=== PATIENT | female | born 1950 | race Caucasian/White ===

== ENCOUNTER 2018-12-11 11:38 | Day surgery (SDC) | payer MEDICARE, MEDICAID ==
[~2018-12-11] VITALS: Ht 160 cm; Wt 60.8 kg
[~2018-12-11 11:38] MED LIST: ALBUTEROL0.09 MG/A1 IH; ATORVASTATIN; AZITHROMYCIN; B-121000 MCG PO; CALTRATE-600 W600 MG PO; CLARITIN 1010 MG/TAB PO; LEVAQUIN 5500 MG/TAB PO; LIPITOR 10MG10 MG PO; NEXIUM 40MG40 MG PO; PHENERGAN W/CO120 ML PO; PREMARIN0.625 MG PO; PREVACID30 MG PO; PRILOSEC 20MG20 MG PO; PROAIR HFA0.09 MG/AC IH; RT ADVAIR 228 DISKUS IH; RT SPIRIVA18 MCG IH; SINGULAIR 110 MG/TAB PO; THEO-DUR 1100 MG/TAB PO; TRAVATAN Z 2.52.5 ML OU; ULTRAM 50MG TAB50 MG PO
[2018-12-11 12:01] VITALS: BP 143/89; PULSE 91; TEMP 97.7
[2018-12-11] MEDS ORDERED: RT ADVAIR 528 DISKUS IH (12:07)
[2018-12-11] MEDS ORDERED: UNIPHYL 400MG400 MG PO (12:08)
[2018-12-11] MEDS ORDERED: PROVENTIL0.09 MG/A1 IH (12:11)
[2018-12-11] MEDS ORDERED: VITAMIN D31000 I1 PO (12:12)
[2018-12-11 13:25] VITALS: BP 147/83; PULSE 83; TEMP 97.6
--- NOTE | 2018-12-11 13:25 | NUR ---
Pt arrived to room from endo procedure. Pt alert and oriented. Pt walked to chair with x2 nurse assist. Pt's family in room. Denies any pain or nausea. Request water and pudding at this time. Vital signs stable. Call light in reach. Report received from NOÉ Vergara.
[2018-12-11 13:40] VITALS: BP 113/90; PULSE 82; TEMP 97.6
--- NOTE | 2018-12-11 13:40 | NUR ---
Pt tolerating drink and pudding. Denies any nausea. Pt's family in room. Call light in reach.
[2018-12-11 13:55] VITALS: BP 148/76; PULSE 79; TEMP 97.6
--- NOTE | 2018-12-11 14:04 | NUR ---
Discharge paperwork explained to pt and pt's family. All questions answered to pt's satisfaction. Pt given discharge instructions, med list, and procedure information.
--- NOTE | 2018-12-11 14:15 | NUR ---
Pt discharged from unit. Pt left via wheelchair to private vehicle driven by daughter, Kathy.
== END 2018-12-11 14:20 | disposition home or self-care (01) ==
LOC: SDCO 11:38
DX: K29.30 Chronic superficial gastritis without bleeding (principal); K22.2 Esophageal obstruction; K44.9 Diaphragmatic hernia without obstruction or gangrene; K58.9 Irritable bowel syndrome, unspecified; K21.9 Gastro-esophageal reflux disease without esophagitis; J44.9 Chronic obstructive pulmonary disease, unspecified; E78.5 Hyperlipidemia, unspecified; Z99.81 Dependence on supplemental oxygen; Z85.41 Personal history of malignant neoplasm of cervix uteri; Z90.710 Acquired absence of both cervix and uterus
CPT/HCPCS: J2704; J7030

== ENCOUNTER → 2019-02-18 | Outpatient (CLI) | payer MEDICARE, MEDICAID ==
[~2019-02-18] MED LIST changes: +PROVENTIL0.09 MG/A1 IH; +RT ADVAIR 528 DISKUS IH; +UNIPHYL 400MG400 MG PO; +VITAMIN D31000 I1 PO
== END ==
LOC: MC.RAD 11:27
DX: Z12.31 Encounter for screening mammogram for malignant neoplasm of breast (principal)

== ENCOUNTER 2021-09-17 09:44 | Emergency (ER) | payer MEDICARE, MEDICAID ==
[~2021-09-17] VITALS: Ht 160 cm; Wt 58.2 kg
[2021-09-17 10:06] VITALS: TEMP 98.4
[2021-09-17] MEDS ORDERED: BREO IH (10:36)
[2021-09-17] MEDS ORDERED: SPIRIVA RE2.5 MCG/Ac IH (10:36)
[2021-09-17 10:38] LABS: BASO # 0.1 K/mm3 (0.0-0.2); BASO % 0.5 % (0.0-2.0); EOS # 0.1 K/mm3 (0.0-0.7); EOS % 0.9 % (0-4.0); GRAN # 6.6 K/mm3 (1.4-6.5); GRAN % 69.3 % (42.2-75.2); HEMATOCRIT 40.3 % (37.0-47.0); HEMOGLOBIN 13.3 g/dl (12.5-16.0); LYMPH # 1.7 K/mm3 (1.2-3.4); LYMPH % 18.1 % (20.0-51.0); MEAN CELL VOLUME 83 fl (80.0-100.0); MEAN CORPUSCULAR HEMOGLOBIN 28 pg (27.0-31.0); MEAN CORPUSCULAR HGB CONC 33 g/dl (33.0-37.0); MEAN PLATELET VOLUME 9.5 fl (7.4-10.4); MONO # 1.1 K/mm3 (0.1-0.6); MONO % 10.9 % (1.7-9.3); PLATELET COUNT 274 K/mm3 (130-400); RED BLOOD COUNT 4.83 M/mm3 (4.10-5.30); REDCELL DISTRIBUTION WIDTH-CV 15.7 % (11.5-14.5)
[2021-09-17 10:54] LABS: ALBUMIN 3.7 gm/dL (3.4-4.8); ALKALINE PHOSPHATASE 76 U/L (40-150); ANION GAP 10 mmol/L (7-16); AST,SGOT 13 U/L (5-34); BILIRUBIN,TOTAL 0.5 mg/dL (0.2-1.2); BLOOD UREA NITROGEN 8 mg/dL (10-20); CALCIUM 9.1 mg/dL (8.4-10.2); CARBON DIOXIDE 24 mmol/L (23-31); CHLORIDE 105 mmol/L (98-107); GLUCOSE 91 mg/dL (70-99); LIPASE 15 U/L (8-78); POTASSIUM 4.1 mmol/L (3.5-4.5); SODIUM 139 mmol/L (136-145); TOTAL PROTEIN 7.6 gm/dL (6.2-8.1)
[2021-09-17 10:55] LABS: ALANINE AMINOTRANSFERASE < 6 U/L (0-55)
[2021-09-17 11:01] LABS: TROPONIN-I < 0.010 ng/mL (0.00-0.033)
[2021-09-17 12:24] LABS: COLLECTION METHOD CLEAN CATCH
[2021-09-17 12:30] LABS: PH 7 (5-8); SQUAMOUS EPITHELIAL 0-2 /hpf (0-10); URINE APPEARANCE Clear (CLEAR/HAZY); URINE BACTERIA Rare (NONE SEEN); URINE BILIRUBIN Negative (NEGATIVE); URINE BLOOD Negative (NEGATIVE); URINE COLOR Straw (YELLOW); URINE GLUCOSE Negative (NEGATIVE); URINE KETONE Trace (NEGATIVE); URINE LEUKOCYTE ESTERASE Negative (NEGATIVE); URINE NITRATE Negative (NEGATIVE); URINE PROTEIN(semi-quant) Negative (NEGATIVE); URINE RBC 0-2 /hpf (0-2); URINE UROBILINOGEN Negative (NEGATIVE)
[2021-09-17] MEDS ORDERED: PREDNISONE20 MG PO (12:50)
[2021-09-17] MEDS ORDERED: ZITHROMAX Z PA250 MG PO (12:50)
[2021-09-17] MEDS ORDERED: IPRATROPIUM BROM3 M1 IH (12:52)
[2021-09-17 13:13] VITALS: BP 149/83; PULSE 102
== END 2021-09-17 13:17 | disposition home or self-care (01) ==
LOC: COL.ER 09:44
PROVIDERS: Physician Assistant
DX: J44.1 Chronic obstructive pulmonary disease with (acute) exacerbation (principal); I10 Essential (primary) hypertension; K21.9 Gastro-esophageal reflux disease without esophagitis; E78.5 Hyperlipidemia, unspecified; F17.210 Nicotine dependence, cigarettes, uncomplicated; Z99.81 Dependence on supplemental oxygen; Z20.822 Contact with and (suspected) exposure to COVID-19; Z79.899 Other long term (current) drug therapy
CPT/HCPCS: J0696; J1100; J7030

== ENCOUNTER 2023-06-27 08:01 | Day surgery (SDC) | payer MEDICARE, MEDICAID ==
[2023-05-26 08:27] VITALS: BP 144/71; PULSE 86; TEMP 96.9
[~2023-06-27] VITALS: Ht 160 cm; Wt 59.8 kg
[~2023-06-27 08:01] MED LIST changes: +ALDACTONE 25MG25 M1 PO; +BREO IH; +CARDIZEM120 MG PO; +CRESTOR5 MG PO; +DALIRESP500 MCG PO; +DOXYCYCLINE 10100 MG PO; +FLEXERIL 1010 MG/TAB PO; +HUMALOG100 U/ML SQ; +IPRATROPIUM BROM3 M1 IH; +LANTUS100 U/ML SQ; +NORVASC 5MG5 MG/TAB PO; +OXYGEN IH; +PREDNISONE20 MG PO; +SPIRIVA RE2.5 MCG/Ac IH; +TYLENOL 8 HR PO; +VENTOLIN0.09 MG IH; +VISION PLUS LU1 EACH PO; +XARELTO20 MG PO; +XELPROS2.5 ML OP; +ZITHROMAX Z PA250 MG PO; +ZYRTEC 10MG10 MG PO
[2023-06-27] MEDS ORDERED: RT ADVAIR 528 DISKUS IH (09:38)
[2023-06-27] MEDS ORDERED: THEO-24400 MG PO (09:39)
[2023-06-27] MEDS ORDERED: NORVASC 5MG5 MG/TAB PO (09:39)
[2023-06-27] MEDS ORDERED: NEXIUM 40MG40 MG PO (09:39)
[2023-06-27] MEDS ORDERED: LIPITOR 10MG10 MG PO (09:40)
[2023-06-27] MEDS ORDERED: SINGULAIR 110 MG/TAB PO (09:40)
[2023-06-27] MEDS ORDERED: SPIRIVA RE2.5 MCG/Ac IH (09:40)
[2023-06-27] MEDS ORDERED: VENTOLIN0.09 MG IH (09:41)
[2023-06-27] MEDS ORDERED: PREDNISONE1 MG PO (09:42)
[2023-06-27] MEDS ORDERED: CALCIUM 600MG+D1 TAB PO (09:43)
[2023-06-27] MEDS ORDERED: PRESERVISION A1 EAC3 PO (09:43)
[2023-06-27] MEDS ORDERED: PROLIA60 MG/ML SQ (09:47)
[2023-06-27 10:40] VITALS: BP 100/62; PULSE 69; TEMP 96.7
[2023-06-27 10:45] VITALS: BP 107/64; PULSE 71
[2023-06-27 11:00] VITALS: BP 119/68; PULSE 76
[2023-06-27 11:15] VITALS: BP 103/67; BP 116/73; PULSE 72; PULSE 75; TEMP 97
[2023-06-27 11:30] VITALS: BP 118/70; PULSE 77
--- NOTE | 2023-06-27 13:14 | NUR ---
1040 PT RETURNED TO BAY 5 POST PROCEDURE. REPORT RECEIVED FROM NOÉ GALLARDO. PT IS DROWSY, BUT OPEN EYES WHEN SPOKEN TO. BREATHING IS EVEN AND UNLABORED ON O2 VIA NC AT 4L. (PT'S BASELINE) 1046 ORANGE JUICE GIVEN TO PT. 1055 DR. CAMACHO IN ROOM TO UPDATE PT AND HER DAUGHTER ON PROCEDURE FINDINGS AND PLAN. 1112 PT GIVEN A MUFFIN TO EAT. TOLERATING PO WELL. 1210 PHYSICIAN DISCHARGE INSTRUCTIONS AND PATIENT EDUCATIONAL MATERIAL REVIEWED WITH PT AND HER DAUGHTER. QUESTIONS INVITED AND ANSWERED. PT TO LOBBY VIA WHEEL CHAIR FOR RIDE HOME WITH DAUGHTER IN POV.
== END 2023-06-27 12:10 | disposition home or self-care (01) ==
LOC: SDCO 08:01
DX: Z12.11 Encounter for screening for malignant neoplasm of colon (principal); D12.2 Benign neoplasm of ascending colon; D12.3 Benign neoplasm of transverse colon; K64.0 First degree hemorrhoids; J44.9 Chronic obstructive pulmonary disease, unspecified; Z99.81 Dependence on supplemental oxygen
CPT/HCPCS: J2704; J7120

== ENCOUNTER 2024-02-09 16:01 | Outpatient (CLI) | payer MEDICARE, MEDICAID ==
[~2024-02-09 16:01] MED LIST changes: +CALCIUM 600MG+D1 TAB PO; +COMBIGAN 0.2%-0.5 ML OU; +PREDNISONE1 MG PO; +PRESERVISION A1 EAC3 PO; +PROLIA60 MG/ML SQ; +THEO-24400 MG PO
[2024-02-09 16:02] VITALS: BP 142/85; PULSE 80; TEMP 98
--- NOTE | 2024-02-09 16:13 | NUR ---
PT TOLERATED INJECTION WELL. VS REMAINED WITHIN NORMAL LIMITS. PT ASSISTED TO MAIN LOBBY VIA WHEELCHAIR AND WAS ACCOMPANIED BY DAUGHTER.
[2024-02-09] MEDS ORDERED: Denosumab 60 MG/ML SYRINGE SQ ONE (16:15)
== END 2024-02-09 16:22 | disposition home or self-care (01) ==
LOC: EUO 16:01
DX: M81.0 Age-related osteoporosis without current pathological fracture (principal)
CPT/HCPCS: J0897